=== PATIENT | male | born 1965 | race Caucasian/White ===

== ENCOUNTER 2022-06-11 00:15 | Emergency (ER) | payer BC ==
[~2022-06-11] VITALS: Ht 182.8 cm; Wt 113.3 kg
--- NOTE | 2022-06-11 00:37 | ED Fall/Injury ---
General Chief Complaint: Trauma-Non Activation Stated Complaint: HEAD INJURY Nursing Triage Note: Fell and hit head. Source: patient Exam Limitations: intoxication History of Present Illness Date Seen by Provider: Jun 11, 2022 Time Seen by Provider: 00:20 Initial Comments 57-year-old male presenting by private vehicle from [place]. He had been drinking alcohol tonight and felt that he drink 1 too many. He was sitting on an [place] chair and his had been out walking the dog. When she got back he was on the ground and had an abrasion on his right upper head. He did not remember falling or hitting his head. He denies any other acute injury. He has no nausea or vomiting. He denies any change in his vision. He has been having some low back pain issues for the last several weeks. He did take a cycl obenzaprine at 8 AM on the seventh. He states he has not had any cyclobenzaprine since then. He has had no blood or fluid from his ears or nose. He denies taking any blood thinners. He has no numbness or weakness in his arms or legs. Occurred: just prior to arrival Severity: moderate Injuries/Pain Location: head, face Context: lost balance Loss of Consciousness: brief (seconds) Associated Symptoms (Fall): No Abdominal Pain, No Chest Pain, No Confusion, No Dizziness; Headache; No Lightheadedness, No Muscle Spasms, No Nausea/Vomiting, No Neck Pain, No Ringing in Ears, No Seizures, No Shortness of Air; Slurred Speech, Trouble Walking; No Vision Changes Allergies and Home Medications Allergies Coded Allergies: No Known Drug Allergies (Unverified , 06/11/22) Patient Home Medication List Home Medication List Reviewed: Yes Review of Systems Review of Systems Constitutional: No chills, No fever Eyes: Denies Blurred Vision, Denies Photophobia, Denies Vision Changes Ears, Nose, Mouth, Throat: denies ear pain, denies ear discharge, denies nose pain, denies nose discharge, denies epistaxis Respiratory: No cough Cardiovascular: No chest pain Gastrointestinal: No nausea, No vomiting Genitourinary: No dysuria Musculoskeletal: see HPI Skin: No change in color Psychiatric/Neurological: See HPI Past Hqgehia-Tfvwkl-Mxlolj Hx Patient Social History Tobacco Use?: No Substance use?: No Alcohol Use?: Yes Alcohol type: Beer Alcohol Frequency: Once in a while Pt feels they are or have been: No Physical Exam Vital Signs Vital Signs - First Documented Capillary Refill : Height, Weight, BMI Height: '" Weight: lbs. oz. kg; BMI Method: General Appearance: WD/WN, no apparent distress HEENT: PERRL/EOMI, normal ENT inspection, TMs normal, pharynx normal, other (Negative santamaria sign, negative raccoon sign, no CSF otorrhea, no CSF rhinorrhea. He does have an abrasion and contusion to his right forehead and scalp.) Neck: full range of motion Cardiovascular: normal peripheral pulses, regular rate, rhythm Respiratory: chest non-tender, lungs clear, normal breath sounds, no respiratory distress, no accessory muscle use Gastrointestinal: normal bowel sounds, non tender, soft, no pulsatile mass Extremities: normal range of motion, non-tender, normal capillary refill Neurologic/Psychiatric: alert, oriented x 3 Skin: normal color, warm/dry [place] Coma Score Best Eye Response: (4) Open Spontaneously Best Verbal Response: (5) Oriented Best Motor Response: (6) Obeys Commands [place] Total: 15 Progress/Results/Core Measures Results/Orders My Orders Orders - RUFUS CASILLAS MD Ct Head/Cervical Spine Wo (06/11/22 00:30) Vital Signs/I&O 06/11/22 06/11/22 06/11/22 00:19 00:19 02:29 Temp 37.0 37.0 Pulse 78 78 72 Resp 18 18 16 B/P (MAP) 14/89 (64) 141/89 (106) 135/86 Pulse Ox 94 94 97 O2 Delivery Room Air Room Air Room Air Progress Progress Note #1: Progress Note Potential diagnosis of skull fracture, intracranial hemorrhage, facial contusion, concussion With patient complaining of headache and not remembering falling and passing out will obtain a CT scan of his head and cervical spine. As he has alcohol intoxication that could be affecting him and his memory of the fall and injury. He has an ice pack on his head that he placed from home. He does not have any open laceration. He refused medication for pain at this point. Progress Note #2: Time: 01:04 Progress Note On my personal review and interpretation of the CT scan of the head and cervical spine without IV contrast I did not appreciate any acute skull fracture or i ntracranial hemorrhage. He did have a scalp hematoma to the right frontal scalp and forehead region. I did not appreciate any acute fracture of the cervical spine but he did have degenerative changes present. Patient is resting in the room and continues to deny needing medication for his headache and abrasion. He was resting comfortably in the bed. He does have low back pain that has been bothering him for the last several weeks but did not feel that it was any worse than it had been prior to the fall. He does feel like the bed was not very comfortable and was aggravating his back pain. Progress Note #3: Time: 02:17 Progress Note I reviewed the radiologist report on the CT scan of the head and cervical spine without IV contrast. They did not appreciate any acute intracranial hemorrhage or skull fracture and no cervical spine fracture. He did have degenerative changes of the cervical spine and moderate spinal stenosis at C5-C6. Updated patient and spouse about the test results. Counseled on follow-up and return precautions. Counseled on symptomatic care for the closed head injury with scalp hematoma and alcohol intoxication. Given information for minor head injury and contusion and abrasions. Advised to try and elevate head of bed 30 to 45 degrees to try and help limit swelling and pain to the face scalp. He voiced that that would be difficult for him as that makes his back hurt more. It feels better if he is more flat. Counseled on using ice to try and help with swelling and pain as well. May use acetaminophen and/or ibuprofen [id number] to help with pain. He can take 650 mg of acetaminophen every 6-8 hours for pain and ibuprofen 800 mg every 8 hours as needed for pain and inflammation. Follow-up with his regular primary care provider in [place] for continued concerns Diagnostic Imaging Diagonstic Imaging: CT Plain Films/CT/US/NM/MRI: c-spine, head Comments CT scan of the head and cervical spine without IV contrast Impression: Right frontal scalp hematoma. No skull fracture or intracranial hemorrhage. Cervical spine CT shows craniocervical junction relationship is normal. There is advanced spondylosis at C4-C5, C5-C6, and C6-C7 characterized by disc degeneration, endplate and uncovertebral joint spurring. There is moderate spinal stenosis at C5-C6. There is no cervical fracture. Cervical soft tissues are unremarkable and lung apices are unremarkable. Read by radiologist Dr. Obinna Menezes MD at 0049 and faxed at 0216 Reviewed: Reviewed [place] Study (I reviewed the radiologist report at 0217), Reviewed by Me Departure Impression Primary Impression: Closed head injury with loss of consciousness of unknown duration Additional Impressions: Alcohol intoxication Qualified Codes: F10.920 - Alcohol use, unspecified with intoxication, uncomplicated Forehead contusion Qualified Codes: S00.83XA - Contusion of other part of head, initial encounter Forehead abrasion Qualified Codes: S00.81XA - Abrasion of other part of head, initial encounter Fall at home Qualified Codes: W19.XXXA - Unspecified fall, initial encounter; Y92.009 - Unspecified place in unspecified non-institutional (private) residence as the place of occurrence of the external cause Disposition: 01 HOME, SELF-CARE Condition: Stable Departure-Patient Inst. Decision time for Depature: 02:23 Referrals: NO,LOCAL PHYSICIAN (PCP/Family) Primary Care Physician Patient Instructions: Preventing Falls ED, Minor Head Injury, Adult ED, Alcohol Intoxication ED, Abrasions ED Add. Discharge Instructions: Try to keep your head elevated at least 30-45 degrees when you are sleeping. This will help limit swelling and bruising from your fall and scalp/forehead injury. May take Acetaminophen and/or Ibuprofen over the counter to help with pain as needed. Apply ice 15-20 minutes every few hours to help with swelling and pain to forehead/scalp area. Avoid drinking excessive amounts of alcohol. Try to hydrate with water and electrolyte drinks to help with your pain and inflammation and to rehydrate from drinking the alcohol as it can dehydrate you Follow up with primary care provider for continued concerns. All discharge instructions reviewed with patient and/or family. Voiced understanding. RUFUS CASILLAS MD Jun 11, 2022 00:37
[2022-06-11 02:29] VITALS: BP 135/86
--- NOTE | 2022-06-11 05:37 | Diagnostic Imaging Report ---
PROCEDURE: CT head and CT cervical spine without contrast. TECHNIQUE: Multiple contiguous axial images were obtained through the brain and cervical spine without the use of intravenous contrast. Sagittal and coronal reformations through the cervical spine were then performed. Auto Exposure Controls were utilized during the CT exam to meet ALARA standards for radiation dose reduction. INDICATION: Head and neck trauma, headache COMPARISON: None available. FINDINGS: Head: No hyperdense hemorrhage or space-occupying mass. No hydrocephalus or midline shift. No evidence of territorial infarct. Basilar cisterns are patent. Small subcutaneous hematoma in the right lateral frontal region. No skull fracture. The paranasal sinuses and mastoid air cells are clear. Cervical spine: No acute fracture or traumatic malalignment. Degenerative disc disease results in kyphotic curvature of the cervical spine with apex at C5-C6. No high-grade spinal canal stenosis. Uncovertebral joint hypertrophy does cause severe neuroforaminal narrowing bilaterally at C4-C5 and C5-C6. Airway is patent. No cervical lymphadenopathy. Visualized thyroid is normal. IMPRESSION: 1. No acute intracranial process or skull fracture. Small right frontal scalp hematoma. 2. No acute fracture or traumatic malalignment of the cervical spine. 3. Findings are in agreement with the preliminary report. Dictated by: Dictated on workstation # [id number]
== END 2022-06-11 02:30 | disposition home or self-care (01) ==
LOC: ER FS 00:27
DX: S06.9X9A Unspecified intracranial injury with loss of consciousness of unspecified duration, initial encounter (principal); S00.03XA Contusion of scalp, initial encounter; S00.83XA Contusion of other part of head, initial encounter; F10.229 Alcohol dependence with intoxication, unspecified; M48.02 Spinal stenosis, cervical region; M54.50 Low back pain, unspecified; R40.2142 Coma scale, eyes open, spontaneous, at arrival to emergency department; R40.2362 Coma scale, best motor response, obeys commands, at arrival to emergency department; R40.2252 Coma scale, best verbal response, oriented, at arrival to emergency department; Z28.310 Unvaccinated for COVID-19; W01.0XXA Fall on same level from slipping, tripping and stumbling without subsequent striking against object, initial encounter; Y92.009 Unspecified place in unspecified non-institutional (private) residence as the place of occurrence of the external cause
CPT/HCPCS: 70450; 72125